=== PATIENT | male | born 1955 | race Caucasian/White ===

== ENCOUNTER 2016-09-03 21:21 | Emergency (ER) | payer SELFPAY ==
[~2016-09-03] VITALS: Ht 182.9 cm; Wt 69.3 kg
[2016-09-03 21:23] VITALS: BP 176/94
[2016-09-03] MEDS ORDERED: DIPHENHYDRAMINE 25 MG CAPSULE ONE (22:42)
[2016-09-03] MEDS ORDERED: DIPHENHYDRAMINE 25 MG CAPSULE PO ONE (23:00)
== END 2016-09-03 22:50 | disposition home or self-care (01) ==
LOC: ED 22:44
DX: L50.9 Urticaria, unspecified (principal); L03.115 Cellulitis of right lower limb; L03.116 Cellulitis of left lower limb
CPT/HCPCS: 99283; Q0163

== ENCOUNTER 2016-09-04 19:49 | Emergency (ER) | payer SELFPAY ==
[~2016-09-04] VITALS: Ht 185.4 cm; Wt 70.3 kg
[2016-09-05 02:18] VITALS: BP 126/71
== END 2016-09-05 02:20 | disposition home or self-care (01) ==
LOC: ED 23:59
DX: S82.192A Other fracture of upper end of left tibia, initial encounter for closed fracture (principal); F10.220 Alcohol dependence with intoxication, uncomplicated; W19.XXXA Unspecified fall, initial encounter; Y93.89 Activity, other specified; Y92.410 Unspecified street and highway as the place of occurrence of the external cause; Y99.8 Other external cause status
CPT/HCPCS: 29505

== ENCOUNTER 2016-09-15 20:21 | Emergency (ER) | payer SELFPAY ==
[~2016-09-15] VITALS: Ht 182.9 cm; Wt 73.4 kg
[2016-09-15] MEDS ORDERED: SODIUM CHLORIDE 0.9% 1,000 ML IV ONE (20:26)
[2016-09-15] MEDS ORDERED: SODIUM CHLORIDE 0.9% 1,000ML IVBOLUS ONE (20:30)
[2016-09-15] MEDS ORDERED: SODIUM CHLORIDE FLUSH 10ML SYR IVF ONE (20:30)
[2016-09-15 20:55] LABS: HEMOGLOBIN 11.1 g/dL (13.7-18.0)
[2016-09-15 21:03] LABS: ASPARTATE AMINO TRANSFERASE 18 U/L (15-37); BLOOD UREA NITROGEN 25 mg/dL (7-18)
[2016-09-15 22:37] VITALS: BP 118/93
== END 2016-09-15 22:40 | disposition home or self-care (01) ==
LOC: ED 22:34
DX: F10.120 Alcohol abuse with intoxication, uncomplicated (principal); F20.9 Schizophrenia, unspecified; F10.20 Alcohol dependence, uncomplicated; F17.200 Nicotine dependence, unspecified, uncomplicated; Z88.6 Allergy status to analgesic agent
CPT/HCPCS: 36415; 80053; 83690; 85025; 85610; 85730; 96360; 96361; 99285; J7030

== ENCOUNTER 2016-10-07 09:16 | Emergency (ER) | payer MEDICAID ==
[~2016-10-07] VITALS: Ht 172.7 cm; Wt 65.0 kg
[2016-10-07] MEDS ORDERED: BACITRACIN ZINC OINT 500U/GM, 0.9 GM ONE (10:29)
[2016-10-07 15:37] VITALS: BP 121/78
== END 2016-10-07 15:49 | disposition home or self-care (01) ==
LOC: ED 10:01
DX: S80.01XA Contusion of right knee, initial encounter (principal); F10.20 Alcohol dependence, uncomplicated; X58.XXXA Exposure to other specified factors, initial encounter; Y93.89 Activity, other specified; Y92.89 Other specified places as the place of occurrence of the external cause; Y99.8 Other external cause status
CPT/HCPCS: 99284

== ENCOUNTER 2016-10-11 18:29 | Emergency (ER) | payer MEDICAID ==
[~2016-10-11] VITALS: Ht 182.9 cm; Wt 69.0 kg
[2016-10-11 20:08] VITALS: BP 133/74
== END 2016-10-11 20:10 | disposition home or self-care (01) ==
LOC: ED 19:04
DX: F10.120 Alcohol abuse with intoxication, uncomplicated (principal)
CPT/HCPCS: 99283